=== PATIENT | male | born 1970 | race Caucasian/White ===

== ENCOUNTER → 2016-09-12 | Outpatient (REF) | payer MEDICARE, MEDICAID ==
[2016-09-12 16:13] LABS: ALBUMIN 3.7 GM/DL (3.2-5.2); ALBUMIN/GLOBULIN RATIO 1.32 (1.00-1.93); ALKALINE PHOSPHATASE 84 U/L (45-117); ALT/SGPT 66 U/L (12-78); ANION GAP 9 MEQ/L (8-16); AST/SGOT 182 U/L (15-37); BILIRUBIN,TOTAL 0.7 MG/DL (0.2-1.0); BLOOD UREA NITROGEN 12 MG/DL (7-18); CALCIUM LEVEL 8.7 MG/DL (8.5-10.1); CARBON DIOXIDE LEVEL 26 MEQ/L (21-32); CHLORIDE LEVEL 102 MEQ/L (98-107); CHOLESTEROL LEVEL 216 MG/DL (<200); CREATININE FOR GFR 1.11 MG/DL (0.70-1.30); GLOMERULAR FILTRATION RATE > 60.0 (>60); GLUCOSE, FASTING 115 MG/DL (70-105); POTASSIUM SERUM 3.5 MEQ/L (3.5-5.1); SODIUM LEVEL 137 MEQ/L (136-145); TOTAL PROTEIN 6.5 GM/DL (6.4-8.2); TRIGLYCERIDES LEVEL 277 MG/DL (<150)
[2016-09-16 00:08] LABS: %CD3+CD4+CD8+ 1.7 % (Not Estab.); %CD3+CD4+CD8- 38.9 % (Not Estab.); %CD3+CD4-CD8+ 47.8 % (Not Estab.); %CD3+CD4-CD8- 1.5 % (Not Estab.); ABS CD3+CD4+CD8+ 44 /uL (Not Estab.); ABS CD3+CD4+CD8- 1011 /uL (Not Estab.); ABS CD3+CD4-CD8+ 1243 /uL (Not Estab.); ABS CD3+CD4-CD8- 39 /uL (Not Estab.); CD4/CD8 NYSDOH RATIO 0.81 (Not Estab.); Eosinophils 2 % (.); HCT 44.1 % (37.5-51.0); HGB 14.6 g/dL (12.6-17.7); Monocytes 6 % (.); Neutrophils 46 % (.); WBC 5.7 x10E3/uL (3.4-10.8)
== END ==
LOC: M SFHCPLAZ 12:54
PROVIDERS: ATTEND Internal Medicine Infectious Disease
DX: B20 Human immunodeficiency virus [HIV] disease (principal); E78.2 Mixed hyperlipidemia; Z79.899 Other long term (current) drug therapy
CPT/HCPCS: 80053; 80061; 81001; 83036; 86360; 86780; 87491; 87536; 87591; G0463